=== PATIENT | female | born 1955 | race Caucasian/White ===

== ENCOUNTER → 2018-06-30 | Outpatient (CLI) | payer OTHER ==
[~2018-06-30] MED LIST: MULT-820 PO
--- NOTE | 2018-07-01 10:16 | RADIOLOGY IMAGING REPORT ---
FACILITY: PATIENT NAME: YUNIEL MERIDA : [id number] MR: [id number] V: [id number] EXAM DATE: [id number] ORDERING PHYSICIAN: DONNA NAM TECHNOLOGIST: Nancy Collado PROCEDURE:BILATERAL DIGITAL SCREENING MAMMOGRAM WITH CAD ASSISTED INTERPRETATION & 3D TOMOSYNTHESIS COMPARISON:03/04/17 & priors to 05/17/12 INDICATIONS:screening FINDINGS: Breast parenchyma is predominantly fatty replaced. There are no mammographic findings concerning for malignancy. No significant interval change. DIAGNOSTIC CATEGORY 1--NEGATIVE. RECOMMENDATIONS: ROUTINE MAMMOGRAM AND CLINICAL EVALUATION IN 1 YEAR. IMPRESSION: BIRADS 1: Negative. Dictated by: Jony Harris on 07/01/2018 at 9:01 Transcribed by: [email or web address] on 07/01/2018 at 9:56 Approved by: Jony Harris on 07/01/2018 at 10:15 [facility]
== END ==
LOC: MAMO 07:21
PROVIDERS: ATTEND Family Medicine
DX: Z12.31 Encounter for screening mammogram for malignant neoplasm of breast (principal)
CPT/HCPCS: 77063; 77067